=== PATIENT | male | born 1980 | race Two or more races ===

== ENCOUNTER 2021-12-24 21:50 | Emergency (ER) | payer BC ==
[~2021-12-24] VITALS: Ht 188 cm; Wt 77.1 kg
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
--- NOTE | 2021-12-25 01:19 | NUR ---
Patient discharged to home in stable condition. Written and verbal after care instructions given. Patient verbalizes understanding of instruction.
[2021-12-25 01:56] VITALS: BP 132/78
== END 2021-12-25 01:15 | disposition home or self-care (01) ==
LOC: ER 22:03
DX: S09.22XA Traumatic rupture of left ear drum, initial encounter (principal); Z88.1 Allergy status to other antibiotic agents; Z60.2 Problems related to living alone; Y08.89XA Assault by other specified means, initial encounter; Y93.89 Activity, other specified; Y92.89 Other specified places as the place of occurrence of the external cause; Y99.8 Other external cause status
CPT/HCPCS: 70450-TC